=== PATIENT | female | born 1950 | race Caucasian/White ===

== ENCOUNTER → 2018-08-16 | Outpatient (CLI) | payer BC ==
[2018-08-17 12:06] LABS: HPV 16 Negative (Negative); HPV 18 Negative (Negative); HPV OTHER HR TYPES Negative (Negative)
== END | disposition home or self-care (01) ==
LOC: LAB 12:13 → LAB SHORT 12:13
PROVIDERS: Nurse Practitioner Women's Health
DX: Z12.4 Encounter for screening for malignant neoplasm of cervix (principal); Z91.89 Other specified personal risk factors, not elsewhere classified
CPT/HCPCS: 87624; G0123

== ENCOUNTER → 2019-05-14 | Outpatient (CLI) | payer BC | END | disposition home or self-care (01) | LOC: LAB 11:55 → LAB SHORT 11:55 | DX: N89.8 Other specified noninflammatory disorders of vagina (principal) | CPT/HCPCS: 87070; 87205 ==

== ENCOUNTER → 2019-07-18 | Outpatient (CLI) | payer BC | END | disposition home or self-care (01) | LOC: PLD 09:15 → LAB SHORT 09:15 | DX: D22.62 Melanocytic nevi of left upper limb, including shoulder (principal) | CPT/HCPCS: 88305 ==

== ENCOUNTER → 2019-07-31 | Outpatient (CLI) | payer BC | END | disposition home or self-care (01) | LOC: PLD 07:33 → LAB SHORT 07:33 | DX: N95.0 Postmenopausal bleeding (principal) | CPT/HCPCS: 88305 ==

== ENCOUNTER 2020-10-23 12:26 | Day surgery (SDC) | payer BC ==
[2020-10-22 16:50] LABS: BASOPHILS ABSOLUTE AUTO 0.02 K/mm3 (0.00-0.23); BASOPHILS PERCENT AUTO 0 % (0-2); EOSINOPHILS ABSOLUTE AUTO 0.08 K/mm3 (0.00-0.68); EOSINOPHILS PERCENT AUTO 1 % (0-6); Hematocrit 39.3 % (33.0-51.0); Hemoglobin 12.6 g/dL (11.5-16.0); IMMATURE GRAN ABSOLUTE AUTO 0.03 K/mm3 (0.00-0.10); IMMATURE GRAN PERCENT AUTO 0 % (0-1); LYMPHOCYTES ABSOLUTE AUTO 1.36 K/mm3 (0.84-5.20); LYMPHOCYTES PERCENT AUTO 20 % (21-46); MONOCYTES ABSOLUTE AUTO 0.51 K/mm3 (0.16-1.47); MONOCYTES PERCENT AUTO 8 % (4-13); Mean Corpuscular HGB 28.4 pg (26.0-34.0); Mean Corpuscular HGB Conc 32.1 g/dL (31.5-36.5); Mean Corpuscular Volume 89 fL (80-100); Mean Platelet Volume 11.5 fL (9.1-12.4); NEUTROPHILS ABSOLUTE AUTO 4.74 K/mm3 (1.96-9.15); NEUTROPHILS PERCENT AUTO 70 % (41-73); Platelet Count 274 K/mm3 (150-400); RDW Coefficient Variation 14.6 % (11.7-14.2); RDW Standard Deviation 47.6 fL (35.1-46.3); Red Blood Cell Count 4.43 M/mm3 (3.80-5.20); White Blood Cell Count 6.74 K/mm3 (4.00-11.30)
[2020-10-22 19:51] LABS: Alanine Aminotransfer (ALT/SGP 24 U/L (12-78); Albumin, Blood 3.7 g/dL (3.4-5.0); Albumin/Globulin Ratio 1.1 (0.8-1.8); Alk Phos 52 U/L (50-136); Anion Gap 3 mmol/L (6-16); Aspartate Aminotrans (AST/SGOT 24 U/L (12-37); Bilirubin, Total 0.4 mg/dL (0.1-1.0); Blood Urea Nitrogen 12 mg/dL (8-24); Bun/Creatinine Ratio 18.1 (12.0-20.0); CO2, Blood 31 mmol/L (21-32); Calcium, Blood 9.2 mg/dL (8.5-10.1); Chloride, Blood 105 mmol/L (98-108); Creatinine, Blood 0.66 mg/dL (0.40-1.00); Globulin, Blood 3.4 g/dL (2.2-4.0); Glomerular Filtration Rate >60 (60-); Glucose, Blood 92 mg/dL (70-99); Potassium, Blood 4.2 mmol/L (3.5-5.5); Sodium, Blood 139 mmol/L (136-145); Total Protein, Blood 7.1 g/dL (6.4-8.2)
[~2020-10-23] VITALS: Ht 177.8 cm; Wt 64.6 kg
[~2020-10-23 12:26] MED LIST: CALCIUM MAGNES1 EACH PO; CLIMARA1 EACH TOP; Calcium Acetat667 MG PO; FLAX PO; GLUC500 PO; LEVO-T75 MC1 PO; PROG100 PO; SINEMET 25-1001 EAC1 PO; VITAMIN D310 MC4 PO
--- NOTE | 2020-10-23 14:41 | NUR ---
LATE ENTRY 1245 Ambulatory in Day Surgery. History, Chart, Medications and Allergies reviewed before start of procedure. Lungs clear T/O to Auscultation. Patient confirms NPO status and agrees with scheduled surgery. Pre-Op teaching done. Pt verbalizes understanding. Patient States Post-Procedure ride home has been arranged.
--- NOTE | 2020-10-23 16:23 | NUR ---
10/23/20 1623 Papst,Jacob D PATH ORDERS PLACED FOR ORD.[facility]
--- NOTE | 2020-10-23 18:42 | NUR ---
SUMMARY PT SITTING UP IN BED EATING DINNER, REPORTS VERY MINOR ABD PAIN AND DENIES NEED FOR PAIN MEDS AT THIS TIME. ABD INCISIONS INTACT X4 WITHOUT DRAINAGE. CÉSAR PAD WITH QUARTER SIZED AREA BLOODY DRAINAGE. CALL LIGHT IN REACH
[2020-10-24 05:27] LABS: BASOPHILS ABSOLUTE AUTO 0.01 K/mm3 (0.00-0.23); BASOPHILS PERCENT AUTO 0 % (0-2); EOSINOPHILS PERCENT AUTO 0 % (0-6); Hematocrit 37.5 % (33.0-51.0); Hemoglobin 12.4 g/dL (11.5-16.0); IMMATURE GRAN ABSOLUTE AUTO 0.03 K/mm3 (0.00-0.10); IMMATURE GRAN PERCENT AUTO 0 % (0-1); LYMPHOCYTES PERCENT AUTO 12 % (21-46); MONOCYTES ABSOLUTE AUTO 0.76 K/mm3 (0.16-1.47); MONOCYTES PERCENT AUTO 8 % (4-13); Mean Corpuscular HGB 28.8 pg (26.0-34.0); Mean Corpuscular HGB Conc 33.1 g/dL (31.5-36.5); Mean Corpuscular Volume 87 fL (80-100); Mean Platelet Volume 11.6 fL (9.1-12.4); NEUTROPHILS ABSOLUTE AUTO 7.15 K/mm3 (1.96-9.15); NEUTROPHILS PERCENT AUTO 79 % (41-73); Platelet Count 250 K/mm3 (150-400); RDW Coefficient Variation 14.6 % (11.7-14.2); RDW Standard Deviation 46.8 fL (35.1-46.3); White Blood Cell Count 9.05 K/mm3 (4.00-11.30)
--- NOTE | 2020-10-24 07:38 | NUR ---
POD 1 S/P TOTAL ROBOTIC HYSTER. PT VSS T/O NIGHT. INCISIONS CDI. PT HAVING SMALL TO MOD AMT VAGINAL BLEEDING; CÉSAR PAD CHANGED X2. HUERTA CATH D/C THIS AM; AWAITING FIRST VOID. PAIN MGD W/TORADOL W/REP RELIEF; PT DENIED NEED FOR STRONGER PAIN MEDS. PT BRAYDEN REG PO, BT ACTIVE THIS AM, PT REP NO FLATUS YET. PT AMB IN HALLS SEVERAL TIMES THIS SHIFT; PT BRAYDEN WELL, SBA PRN. IV SL THIS AM. BEDSIDE REPORT GIVEN TO RED MITCHELL.
[2020-10-24] MEDS ORDERED: DOCU100 PO (13:19)
[2020-10-24] MEDS ORDERED: IBUP800 PO (13:20)
[2020-10-24] MEDS ORDERED: Milk Of Ma400 MG/5 M PO (13:21)
[2020-10-24] MEDS ORDERED: Percocet 5-3251 EACH PO (13:22)
[2020-10-24] MEDS ORDERED: PROM25 PO (13:23)
[2020-10-24] MEDS ORDERED: SENN187 PO (13:25)
[2020-10-24] MEDS ORDERED: SIME80CH PO (13:26)
--- NOTE | 2020-10-24 14:29 | NUR ---
1400 discharged to home with . pt reports pain is adequately controlled. kimber po food and fluids. pt voiding. abd incisions dry and intact
== END 2020-10-24 14:11 | disposition home or self-care (01) ==
LOC: ORSCMMR 12:26 → ORD 14:00 → ORSCMMR 14:00 → SURS 17:34 → ORSCMMR 10-24 14:11
PROVIDERS: Obstetrics & Gynecology
PROC: 8E0W4CZ Robotic Assisted Procedure of Trunk Region, Percutaneous Endoscopic Approach (ICD-10-PCS; principal; 2020-10-23 14:00)
PROC: 0UT94ZZ Resection of Uterus, Percutaneous Endoscopic Approach (ICD-10-PCS; principal; 2020-10-23 14:00)
PROC: 0UT24ZZ Resection of Bilateral Ovaries, Percutaneous Endoscopic Approach (ICD-10-PCS; principal; 2020-10-23 14:00)
PROC: 0UT74ZZ Resection of Bilateral Fallopian Tubes, Percutaneous Endoscopic Approach (ICD-10-PCS; principal; 2020-10-23 14:00)
DX: N95.0 Postmenopausal bleeding (principal); D25.9 Leiomyoma of uterus, unspecified; N80.3 Endometriosis of pelvic peritoneum; N83.202 Unspecified ovarian cyst, left side; K21.9 Gastro-esophageal reflux disease without esophagitis
CPT/HCPCS: 58571; S2900; 36415; 80053; 85025; 86850; 86900; 86901; 88305; 88307; A9270; J0690; J1100; J1885; J2250; J2405; J2704; J3010; J7120

== ENCOUNTER → 2021-07-23 | Outpatient (CLI) | payer BC ==
[~2021-07-23] MED LIST changes: +DOCU100 PO; +IBUP800 PO; +Milk Of Ma400 MG/5 M PO; +PROM25 PO; +Percocet 5-3251 EACH PO; +SENN187 PO; +SIME80CH PO
== END | disposition home or self-care (01) ==
LOC: LAB SHORT 11:10
DX: L57.0 Actinic keratosis (principal); R23.4 Changes in skin texture; L83 Acanthosis nigricans
CPT/HCPCS: 88305; 88312

== ENCOUNTER 2025-07-08 08:03 | Day surgery (SDC) | payer BC ==
[2025-07-08] VITALS (11 sets, daily range): BP systolic 134–164; BP diastolic 64–76
[~2025-07-08] VITALS: Ht 170.2 cm; Wt 60.4 kg
--- NOTE | 2025-07-08 08:51 | NUR ---
Ambulatory in Day Surgery. Pre-Op teaching done. Pt verbalizes understanding. History, Chart, Medications and Allergies reviewed before start of procedure. Patient confirms NPO status and agrees with scheduled surgery. Patient States Post-Procedure ride home has been arranged.
--- NOTE | 2025-07-08 09:23 | NUR ---
07/08/25 0923 Deangelo Weber CONFIRMED AND REVIEWED H&P, MEDCICATIONS, ALLERGIES, MEDICAL HISTORY, RESPIRATORY HISTORY, VITAL SIGNS, 3-LEAD EKG, CONSENTS, AND PHYSICIAN ORDERS. PATIENT CONFIRMS NPO STATUS AND AGREES WITH SCHEDULED PROCEDURE. MONITOR INTACT WITH CONTINUOUS PULSE OXIMETRY, CAPNOGRAPHY, 3-LEAD EKG, INTERMITTENT BP. SUPPLEMENTAL O2 TO BE TITRATED THROUGHOUT PROCEDURE TO MAINTAIN O2 SATURATION ABOVE 90%. PATIENT DETERMINED TO BE ASA APPROPRIATE FOR PROPOFOL SEDATION PRIOR TO START OF PROCEDURE BY DR. MENENDEZ. Bite Block Placed AT START OF PROCEDURE.
--- NOTE | 2025-07-08 09:57 | NUR ---
Patient States Post-Procedure ride home has been arranged. Discharged via wheelchair to private car for ride home. Discharge instructions reviewed with patient. Patient verbalizes understanding. Copy given to patient to take home.
== END 2025-07-08 23:00 | disposition home or self-care (01) ==
LOC: ORSCMMR 08:03 → ORD 09:45 → ORSCMMR 09:45
PROVIDERS: Family Medicine
PROC: 0DB68ZX Excision of Stomach, Via Natural or Artificial Opening Endoscopic, Diagnostic (ICD-10-PCS; principal; 2025-07-08 09:45)
PROC: 0DB98ZX Excision of Duodenum, Via Natural or Artificial Opening Endoscopic, Diagnostic (ICD-10-PCS; principal; 2025-07-08 09:45)
DX: R10.13 Epigastric pain (principal); K29.70 Gastritis, unspecified, without bleeding; K44.9 Diaphragmatic hernia without obstruction or gangrene; K29.80 Duodenitis without bleeding; E03.9 Hypothyroidism, unspecified; G20.A1 Parkinson's disease without dyskinesia, without mention of fluctuations; I73.00 Raynaud's syndrome without gangrene; Z79.899 Other long term (current) drug therapy
CPT/HCPCS: 88305; J2704; J7120